=== PATIENT | female | born 1970 | race African-American/Black ===

== ENCOUNTER 2022-04-08 08:50 | Outpatient (CLI) | payer OTHER, SELFPAY ==
--- NOTE | ~2022-04-08 | CT_ITS ---
EXAMINATION: CT diagnostic chest wo con DATE: 04/08/2022 10:30 INDICATION: Shortness of breath, personal history of nicotine dependence TECHNIQUE: Computed tomography (CT) of the chest was performed without intravenous contrast. The dose -length product (DLP) was 342.70 mGy-cm. Automated exposure control and iterative reconstruction tech [employer] were employed. COMPARISON: None FINDINGS: There is mild emphysema. The lungs are free of acute opacities. No pleural effusion or pneu mothorax. No pathologically enlarged thoracic lymph nodes are identified. The heart size is normal. C alcified coronary artery atherosclerosis is noted. A large volume of colonic stool is present. There is moderate atrophy of the right kidney. There is moderate thoracic spondylosis. IMPRESSION: 1. Mild emphysema. 2. Coronary artery disease. Reviewed, dictated and finalized at location F. ING SYSTEMS AND EQUIPMENT REPAIRER
[2022-04-08 09:30] VITALS: PULSE 96; O2SAT 95
[2022-04-08 09:35] VITALS: PULSE 120; O2SAT 87
[2022-04-08 09:40] VITALS: PULSE 121; O2SAT 88
[2022-04-08 09:45] VITALS: PULSE 124; O2SAT 91
[2022-04-08 09:55] VITALS: PULSE 99; O2SAT 95
--- NOTE | 2022-04-08 10:30 | PCRCNOTE ---
Addendum entered by Ivonne Hernandez, VIDEO CONTROL OPERATOR 04/08/22 10:36: HOME O2 EVAL COMPLETE, FAXED TO OFFICE Original Note: PT CAME IN FOR PFT TESTING AND WAS UNABLE TO PERFORM DESPITE GOOD COACHING AND MULTIPLE ATTEMPTS. PT STATES SHE IS TOO SHORT OF BREATH. [facility] OFFICE NOTIFIED.
--- NOTE | 2022-04-08 10:35 | HOMEO2EVAL ---
Evaluation was performed at [facility] Home Oxygen Evaluation RC: Home Oxygen (O2) Evaluation Start: 04/08/22 10:31 Freq: Status: Active Protocol: RPE Activity Type Activity Date Activity User E-sign Co-sign Detail Recorded Client Recorded Date Recorded By Document 04/08/22 09:30 [email or web address] [email or web address] 04/08/22 10:35 DJO Document 04/08/22 09:35 [email or web address] [email or web address] 04/08/22 10:35 DJO Document 04/08/22 09:40 [email or web address] [email or web address] 04/08/22 10:35 DJO Document 04/08/22 09:45 [email or web address] [email or web address] 04/08/22 10:35 DJO Document 04/08/22 09:55 [email or web address] [email or web address] 04/08/22 10:35 DJO 04/08/22 04/08/22 04/08/22 09:30 09:35 09:40 Home O2 Evaluation [Oxygen] -Test Phase Resting Exercise Exercise -Oxygen Delivery Room Air Room Air Nasal Cannula -Oxygen Flow Rate (L/min) 1 [Pulse Oximetry] -Pulse Oximetry (90-100 %) 95 87 L 88 L [Pulse Rate] -Pulse Rate (60-100 beats/min) 96 120 H 121 H [Evaluation] -Activity Tolerance [Exercise] -Ambulation Distance (feet) -Ambulation Distance (meters) 04/08/22 04/08/22 09:45 09:55 Home O2 Evaluation [Oxygen] -Test Phase Exercise Resting -Oxygen Delivery Nasal Cannula Room Air -Oxygen Flow Rate (L/min) 2 [Pulse Oximetry] -Pulse Oximetry (90-100 %) 91 95 [Pulse Rate] -Pulse Rate (60-100 beats/min) 124 H 99 [Evaluation] -Activity Tolerance Fair [Exercise] -Ambulation Distance (feet) 800 -Ambulation Distance (meters) 243.82
== END 2022-04-08 08:51 | disposition home or self-care (01) ==
PROVIDERS: PCP Nurse Practitioner Family; Visit Provider Physician Assistant
DX: R06.00 Dyspnea, unspecified (principal); Z87.891 Personal history of nicotine dependence; J43.9 Emphysema, unspecified; I25.10 Atherosclerotic heart disease of native coronary artery without angina pectoris
CPT/HCPCS: 71250

== ENCOUNTER 2024-03-29 15:24 | Outpatient (CLI) | payer OTHER, SELFPAY ==
--- NOTE | ~2024-03-29 | CT_ITS ---
CT Scan of the Chest without Contrast: Clinical Indication: Lung cancer screening, nicotine dependence Technique: Contiguous sections were acquired throughout the chest without intravenous contrast. Dose reduction technique was used on this scan by utilizing automated exposure control and iterative recon struction technique. The dose-length product (DLP) was 69.78 mGy-cm. COMPARISON: 04/08/2022 Findings: There is no evidence of any significant mediastinal, hilar or axillary lymphadenopathy. The mediastin al soft tissues appear normal. There is no evidence of pleural or pericardial effusion. The lungs are clear. No pulmonary nodules or infiltrates are noted. Mild emphysema noted. Images through the upper abdomen reveal no abnormalities. Impression: Lung RADS 1: Negative. 12 month follow-up screening CT advised. Reviewed, dictated and finalized at location . S CUT OFF TENDER Impression: Lung RADS 1: Negative. 12 month follow-up screening CT advised.
== END 2024-03-29 15:25 | disposition home or self-care (01) ==
PROVIDERS: PCP Nurse Practitioner Family; Visit Provider Physician Assistant
DX: Z12.2 Encounter for screening for malignant neoplasm of respiratory organs (principal); Z87.891 Personal history of nicotine dependence
CPT/HCPCS: 71271

== ENCOUNTER 2024-07-20 07:47 | Outpatient (CLI) | payer OTHER, SELFPAY ==
--- NOTE | 2024-07-21 09:37 | WPDPFTINT ---
PFT Procedure Performed PFT Procedure Performed Spirometry with Pre/Post Bronchodilator Plethysmography (Lung Vol) Diffusing Cap (DLCO) Flow Vol Loop PFT Interpretation Lung volumes were assessed using the body plethysmography technique. The expiratory reserve volume is decreased, though the cause is unclear; suboptimal effort may account for this reduction. All other lung volumes appear normal. Spirometry results indicate normal expiratory flow rates and an FEV1/FVC ratio of 83%, which is within the normal range. There was no significant improvement in expiratory flow rates after bronchodilator administration. The lung diffusion capacity is normal at 78% of the predicted value. The flow volume loop is also unremarkable. Impression: Spirometry, lung volumes, and lung diffusion capacity all within the normal range.
== END 2024-07-20 07:48 | disposition home or self-care (01) ==
LOC: ANHPFT 07:47
PROVIDERS: PCP Nurse Practitioner Family; Visit Provider Physician Assistant
DX: J43.9 Emphysema, unspecified (principal)
CPT/HCPCS: 94060; 94726; 94729